=== PATIENT | male | born 1970 | race Caucasian/White ===

== ENCOUNTER 2018-01-28 14:44 | Emergency (ER) | payer OTHER ==
[2018-01-28 14:58] VITALS: RESP 18
[2018-01-28] MEDS ORDERED: ONDANSETRON 4 MG/2 ML VIAL IVP STA (15:15)
[2018-01-28] MEDS ORDERED: SODIUM CHLORIDE 0.9% 1,000 ML IV STA (15:15)
[2018-01-28] MEDS ORDERED: RX INFO: IV CONTRAST WAS GIVEN 1 EACH MISC MISCELLANE PRN (15:15)
[2018-01-28] MEDS ORDERED: MORPHINE SULFATE 4 MG/ML SYRINGE IVP STA (15:16)
--- NOTE | 2018-01-28 15:17 | ED ---
General Adult HPI - General Chief complaint: Abdominal Pain Stated complaint: abdominal pain Time Seen by Provider: 01/28/18 14:54 Source: EMS, RN notes reviewed Mode of arrival: EMS Limitations: no limitations - History of Present Illness Initial comments: Patient 47-year-old male presented to the emergency room today with a chief complaint of right lower quadrant pain. Patient states that pain started yesterday around the middle of the abdomen and moved to the right lower quadrant. Patient does admit that pain is sharp. Patient does admit that he is currently at rehab has been there for 2 weeks at [facility]. Patient states she's never had pain like this in the past. He denies any complaints or associated symptoms. Patient denies any recent fever, chills, shortness of breath, chest pain, back pain, numbness or tingling, dysuria or hematuria, constipation or diarrhea, headaches or visual changes, or any other complaints. - Related Data Previous Rx's Medication Instructions Recorded Dicyclomine [Bentyl] 20 mg PO QID #20 tablet 01/28/18 Ondansetron Odt [Zofran ODT] 4 mg PO Q8HR PRN #20 tab 01/28/18 Allergies Allergy/AdvReac Type Severity Reaction Status Date / Time hydrochlorothiazide Allergy Itching Verified 01/28/18 14:57 ketorolac [From Toradol] Allergy Swelling Verified 01/28/18 14:57 lisinopril Allergy Itching Verified 01/28/18 14:57 Penicillins Allergy Unknown Verified 01/28/18 14:57 Childhood aspirin AdvReac Abdominal Verified 01/28/18 14:57 Pain NSAIDS (Non-Steroidal AdvReac Abdominal Verified 01/28/18 14:57 Anti-Inflamma Pain Review of Systems ROS Statement: Those systems with pertinent positive or pertinent negative responses have been documented in the HPI. ROS Other: All systems not noted in ROS Statement are negative. Past Medical History Past Medical History: COPD, Hyperlipidemia, Hypertension Additional Past Medical History / Comment(s): skin cancer History of Any Multi-Drug Resistant Organisms: None Reported Past Surgical History: Joint Replacement Additional Past Surgical History / Comment(s): bilateral hip surgery Past Psychological History: No Psychological Hx Reported Smoking Status: Former smoker Past Alcohol Use History: None Reported Past Drug Use History: Cocaine, Marijuana, Opiates General Exam - General Exam Comments Initial Comments: General: The patient is awake and alert, in no distress, and does not appear acutely ill. Eye: Pupils are equal, round and reactive to light, extra-ocular movements are intact. No nystagmus. There is normal conjunctiva bilaterally. No signs of icterus. Ears, nose, mouth and throat: There are moist mucous membranes and no oral lesions. Neck: The neck is supple, there is no tenderness or JVD. Cardiovascular: There is a regular rate and rhythm. No murmur, rub or gallop is appreciated. Respiratory: Lungs are clear to auscultation, respirations are non-labored, breath sounds are equal. No wheezes, stridor, rales, or rhonchi. Gastrointestinal: Abdomen is soft on palpation per patient does have tenderness right lower quadrant. No rebound tenderness. No guarding. Musculoskeletal: Normal ROM, no tenderness. Strength 5/5. Sensation intact. Pulses equal bilaterally 2+. Neurological: A&O x 3. CN II-XII intact, There are no obvious motor or sensory deficits. Coordination appears grossly intact. Speech is normal. Skin: Skin is warm and dry and no rashes or lesions are noted. Psychiatric: Cooperative, appropriate mood & affect, normal judgment. Limitations: no limitations Course Vital Signs 01/28/18 01/28/18 14:56 16:58 Temperature 99.5 F Pulse Rate 69 88 Respiratory 18 18 Rate Blood Pressure 197/125 137/86 O2 Sat by Pulse 97 99 Oximetry Medical Decision Making - Medical Decision Making Patient reexamined at this time shows no signs of distress. His CT of the abdomen pelvis has been reviewed and does show mild to moderate enteritis causing possible ileus. Patient does admit to bowel movement today. Patient states she's had diarrhea last 3 days along with nausea vomiting. Does have 15, 000 white count felt to be reactive at this time. Patient doing well vitals are stable. Will be discharged home with Melissa Obrien for his symptoms advised used Tylenol for pain. Is advised follow-up the family doctor next 2 days return here to the emergency room symptoms increase or worsen. Patient states understanding and is in agreement. Case was discussed with attending physician Dr. Khan. - Lab Data Result diagrams: 01/28/18 15:20 01/28/18 15:20 Lab Results 05/16/18 05/16/18 05/16/18 Range/Units 15:20 15:20 15:20 WBC 15.1 H (3.8-10.6) k/uL RBC 4.63 (4.30-5.90) m/uL Hgb 13.8 (13.0-17.5) gm/dL Hct 41.9 (39.0-53.0) % MCV 90.5 (80.0-100.0) fL MCH 29.8 (25.0-35.0) pg MCHC 32.9 (31.0-37.0) g/dL RDW 14.4 (11.5-15.5) % Plt Count 428 (150-450) k/uL Neutrophils % 61 % Lymphocytes % 25 % Monocytes % 10 % Eosinophils % 3 % Basophils % 0 % Neutrophils # 9.1 H (1.3-7.7) k/uL Lymphocytes # 3.7 (1.0-4.8) k/uL Monocytes # 1.5 H (0-1.0) k/uL Eosinophils # 0.5 (0-0.7) k/uL Basophils # 0.1 (0-0.2) k/uL Sodium 143 (137-145) mmol/L Potassium 4.2 (3.5-5.1) mmol/L Chloride 102 (98-107) mmol/L Carbon Dioxide 26 (22-30) mmol/L Anion Gap 15 mmol/L BUN 30 H (9-20) mg/dL Creatinine 0.91 (0.66-1.25) mg/dL Est GFR (CKD-EPI)AfAm >90 (>60 ml/min/1.73 sqM) Est GFR (CKD-EPI)NonAf >90 (>60 ml/min/1.73 sqM) Glucose 95 (74-99) mg/dL Plasma Lactic Acid Juan C 0.6 L (0.7-2.0) mmol/L Calcium 9.6 (8.4-10.2) mg/dL Total Bilirubin 0.9 (0.2-1.3) mg/dL AST 33 (17-59) U/L ALT 72 (21-72) U/L Alkaline Phosphatase 72 (38-126) U/L Total Protein 7.0 (6.3-8.2) g/dL Albumin 4.2 (3.5-5.0) g/dL Amylase 62 (30-110) U/L Lipase 83 (23-300) U/L Urine Color Urine Appearance (Clear) Urine pH (5.0-8.0) Ur Specific [place] (1.001-1.035) Urine Protein (Negative) Urine Glucose (UA) (Negative) Urine Ketones (Negative) Urine Blood (Negative) Urine Nitrite (Negative) Urine Bilirubin (Negative) Urine Urobilinogen (<2.0) mg/dL Ur Leukocyte Esterase (Negative) Urine RBC (0-5) /hpf Ur Squamous Epith Cells (0-4) /hpf Amorphous Sediment (None) /hpf 01/28/18 Range/Units 17:15 WBC (3.8-10.6) k/uL RBC (4.30-5.90) m/uL Hgb (13.0-17.5) gm/dL Hct (39.0-53.0) % MCV (80.0-100.0) fL MCH (25.0-35.0) pg MCHC (31.0-37.0) g/dL RDW (11.5-15.5) % Plt Count (150-450) k/uL Neutrophils % % Lymphocytes % % Monocytes % % Eosinophils % % Basophils % % Neutrophils # (1.3-7.7) k/uL Lymphocytes # (1.0-4.8) k/uL Monocytes # (0-1.0) k/uL Eosinophils # (0-0.7) k/uL Basophils # (0-0.2) k/uL Sodium (137-145) mmol/L Potassium (3.5-5.1) mmol/L Chloride (98-107) mmol/L Carbon Dioxide (22-30) mmol/L Anion Gap mmol/L BUN (9-20) mg/dL Creatinine (0.66-1.25) mg/dL Est GFR (CKD-EPI)AfAm (>60 ml/min/1.73 sqM) Est GFR (CKD-EPI)NonAf (>60 ml/min/1.73 sqM) Glucose (74-99) mg/dL Plasma Lactic Acid Juan C (0.7-2.0) mmol/L Calcium (8.4-10.2) mg/dL Total Bilirubin (0.2-1.3) mg/dL AST (17-59) U/L ALT (21-72) U/L Alkaline Phosphatase (38-126) U/L Total Protein (6.3-8.2) g/dL Albumin (3.5-5.0) g/dL Amylase (30-110) U/L Lipase (23-300) U/L Urine Color Yellow Urine Appearance Cloudy (Clear) Urine pH 8.0 (5.0-8.0) Ur Specific [place] >1.050 H (1.001-1.035) Urine Protein Trace H (Negative) Urine Glucose (UA) Negative (Negative) Urine Ketones Negative (Negative) Urine Blood Negative (Negative) Urine Nitrite Negative (Negative) Urine Bilirubin Negative (Negative) Urine Urobilinogen <2.0 (<2.0) mg/dL Ur Leukocyte Esterase Negative (Negative) Urine RBC 4 (0-5) /hpf Ur Squamous Epith Cells 1 (0-4) /hpf Amorphous Sediment Rare H (None) /hpf Disposition Clinical Impression: Nausea vomiting and diarrhea Disposition: HOME SELF-CARE Condition: Good Instructions: Gastroenteritis (ED) Additional Instructions: Please use medication as discussed. Please follow-up with family doctor in the next 2 days of symptoms have not improved. Please return to emergency room if the symptoms increase or worsen or for any other concerns. Prescriptions: Dicyclomine [Bentyl] 20 mg PO QID #20 tablet Ondansetron Odt [Zofran ODT] 4 mg PO Q8HR PRN #20 tab PRN Reason: Nausea Is patient prescribed a controlled substance at d/c from ED?: No Referrals: None,Stated [Primary Care Provider] - 1-2 days Time of Disposition: 17:50
[2018-01-28 15:53] LABS: ALT 72 U/L (21-72); AST 33 U/L (17-59); Albumin 4.2 g/dL (3.5-5.0); Alkaline Phosphatase 72 U/L (38-126); Amylase 62 U/L (30-110); Anion Gap 15 mmol/L; Basophils # (A) 0.1 k/uL (0-0.2); Basophils % (A) 0 %; Blood Urea Nitrogen 30 mg/dL (9-20); Calcium 9.6 mg/dL (8.4-10.2); Carbon Dioxide 26 mmol/L (22-30); Chloride 102 mmol/L (98-107); Eosinophils # (A) 0.5 k/uL (0-0.7); Eosinophils % (A) 3 %; Glucose 95 mg/dL (74-99); HCT 41.9 % (39.0-53.0); HGB 13.8 gm/dL (13.0-17.5); Lipase 83 U/L (23-300); Lymphocytes # (A) 3.7 k/uL (1.0-4.8); Lymphocytes % (A) 25 %; MCH 29.8 pg (25.0-35.0); MCHC 32.9 g/dL (31.0-37.0); MCV 90.5 fL (80.0-100.0); Mean Platelet Volume 7.2; Monocytes # (A) 1.5 k/uL (0-1.0); Monocytes % (A) 10 %; Neutrophils # (A) 9.1 k/uL (1.3-7.7); Neutrophils % (A) 61 %; Platelet Count 428 k/uL (150-450); Potassium 4.2 mmol/L (3.5-5.1); RBC 4.63 m/uL (4.30-5.90); RDW 14.4 % (11.5-15.5); Sodium 143 mmol/L (137-145); Total Bilirubin 0.9 mg/dL (0.2-1.3); WBC 15.1 k/uL (3.8-10.6)
--- NOTE | 2018-01-28 16:53 | CT ---
EXAMINATION TYPE: CT abdomen pelvis w con DATE OF EXAM: 01/28/2018 COMPARISON: NONE HISTORY: Abd pain and vomiting. CT DLP: 507 mGycm, Automated Exposure Control for Dose Reduction was Utilized. CONTRAST: CT scan of the abdomen and pelvis is performed without oral but with IV Contrast, patient injected w ith 100ml mL of Isovue M300. FINDINGS: LUNG BASES: No significant abnormality is appreciated. LIVER/GB: No significant abnormality is appreciated. PANCREAS: No significant abnormality is seen. SPLEEN: No significant abnormality is seen. ADRENALS: No significant abnormality is seen. KIDNEYS: There is 3.0 cm simple appearing cyst laterally upper pole level right kidney. There are sub centimeter low dense lesion medially upper pole level left kidney too small to further characterize s eries 5 image 27. There is symmetric cortical medullary uptake and excretion from both kidneys withou t evidence of hydronephrosis bilaterally. BOWEL: Evaluation bowel is suboptimal secondary to lack of enteric contrast. There is no suspicious s tomach or colonic dilatation identified. Duodenal sweep is not dilated. Small bowel probable jejunal loop in the left upper quadrant fluid-filled prominent, some abnormal dilatation of the 3.5 cm is see n axial image 32. Air-fluid level is present. Some adjacent nondilated bowel loops are felt present. There is perhaps areas of mild to moderate wall thickening near this level. Small bowel feces sign te rminal ileum consistent with delayed passage of ingested material 2 colonic level is present. Normal- appearing appendix from cecum is seen. PROSTATE/SEMINAL VESICLES: Suboptimal evaluation, visualized inferior portion axial image 84 is unrem arkable. LYMPH NODES: No greater than 1cm abdominal or pelvic lymph nodes are appreciated. OSSEOUS STRUCTURES: Metallic hardware from bilateral hip arthroplasties is present, this causes strea k artifact limiting evaluation of pelvic structures. There is mild to moderate multilevel spurring in the spine. There is moderate disc space narrowing with vacuum disc phenomenon L4-L5 level. OTHER: No significant additional abnormality is seen. IMPRESSION: Suspect a mild/moderate enteritis involving jejunal loops in the left upper to midabdomen causing focal ileus. Overall nonobstructive bowel gas pattern.
[2018-01-28 17:26] LABS: Amorphous Sediment,Urine Rare /hpf; Appearance,Urine Cloudy (Clear); Bilirubin,Urine Negative (Negative); Blood,Urine Negative (Negative); Color,Urine Yellow; Glucose,Urine (UA) Negative (Negative); Ketones,Urine Negative (Negative); Leukocyte Esterase,Urine Negative (Negative); Nitrite,Urine Negative (Negative); Protein,Urine Trace (Negative); RBC,Urine 4 /hpf (0-5); Squamous Epithelial Cell,Urine 1 /hpf (0-4); Urobilinogen,Urine <2.0 mg/dL (<2.0)
[2018-01-28 17:43] LABS: Specific Gravity,Urine >1.050 (1.001-1.035)
[2018-01-28] MEDS ORDERED: MORPHINE SULFATE 4 MG/ML SYRINGE IM STA (17:50)
[2018-01-28] MEDS ORDERED: DICYCLOMINE 10 MG/ML 2 ML AMP IM STA (17:51)
[2018-01-28] MEDS ORDERED: ONDANSETRON ODT 4 MG TAB PO STA (17:51)
[2018-01-28 18:23] VITALS: BP 134/87; PULSE 87; TEMP 98.7
== END 2018-01-28 18:22 | disposition home or self-care (01) ==
LOC: EC 14:44
DX: R11.2 Nausea with vomiting, unspecified (principal); R19.7 Diarrhea, unspecified; R10.31 Right lower quadrant pain; Z87.891 Personal history of nicotine dependence; Z85.828 Personal history of other malignant neoplasm of skin; Z96.643 Presence of artificial hip joint, bilateral; Z88.0 Allergy status to penicillin; Z88.6 Allergy status to analgesic agent; Z88.8 Allergy status to other drugs, medicaments and biological substances
CPT/HCPCS: 99285; 96374; 96375; 96372 ×2; 36415; 80053; 82150; 83605; 83690; 85025; 81001; 74177; J2270; J0500; J2405; Q9967

== ENCOUNTER 2018-02-02 13:34 | Observation (INO) | payer OTHER ==
[2018-02-02] MEDS ORDERED: FAMOTIDINE 20 MG/2 ML VIAL IV STA (13:54)
[2018-02-02] MEDS ORDERED: methylPREDNISolone SOD SUCCI 125 MG/2 ML VIAL IV STA (13:54)
[2018-02-02] MEDS ORDERED: diphenhydrAMINE 50 MG/ML 1 ML VIAL IVP STA ×2 (13:55→16:59)
--- NOTE | 2018-02-02 14:09 | ED ---
General Adult HPI <Christian Ross - Last Filed: 02/02/18 18:39> - General Source: patient, EMS, RN notes reviewed Mode of arrival: EMS Limitations: no limitations <Myron Bullard - Last Filed: 02/02/18 18:54> - General Chief complaint: Skin/Abscess/Foreign Body Stated complaint: poss allergic reaction Time Seen by Provider: 02/02/18 13:37 - History of Present Illness Initial comments: 47-year-old male presents to the emergency department for a chief complaint of rash 2 days. Patient states he had the rash about 2 weeks ago when he first started staying at [facility]. He was seen here in the emergency department and given Benadryl, steroids, and Pepcid. Patient states that the rash improved over the past week but came back last night. Patient states that he was given Benadryl last night and this morning about 3 hours ago. Patient states it helped somewhat. Patient is out of the Pepcid represcribed. Patient has also finished the steroid pack. Patient states the Medrol Dosepak irritates his stomach but prednisone does not. Patient requests to have prednisone if we prescribe him a steroid. Patient states his clothing is now being washed in hypoallergenic soaps. Patient states he feels like he has a "lump in his throat" but denies any difficulty breathing or swallowing. Denies any feelings of swelling in the throat or the lips or tongue. Patient is also complaining of left sided chest pain on re-evaluation since this morning. Patient states it is worse while taking a deep breath. Patient has no other complaints at this time including shortness of breath, abdominal pain, nausea or vomiting, headache, or visual changes. (Myron Bullard) - Related Data Previous Rx's Medication Instructions Recorded Dicyclomine [Bentyl] 20 mg PO QID #20 tablet 01/28/18 Ondansetron Odt [Zofran ODT] 4 mg PO Q8HR PRN #20 tab 01/28/18 Allergies Allergy/AdvReac Type Severity Reaction Status Date / Time hydrochlorothiazide Allergy Itching Verified 02/02/18 13:42 ketorolac [From Toradol] Allergy Swelling Verified 02/02/18 13:42 lisinopril Allergy Itching Verified 02/02/18 13:42 Penicillins Allergy Unknown Verified 02/02/18 13:42 Childhood aspirin AdvReac Abdominal Verified 02/02/18 13:42 Pain NSAIDS (Non-Steroidal AdvReac Abdominal Verified 02/02/18 13:42 Anti-Inflamma Pain Review of Systems ROS Other: All systems not noted in ROS Statement are negative. <Christian Ross - Last Filed: 02/02/18 18:39> ROS Other: All systems not noted in ROS Statement are negative. <Myron Bullard - Last Filed: 02/02/18 18:54> ROS Statement: Those systems with pertinent positive or pertinent negative responses have been documented in the HPI. Past Medical History Past Medical History: COPD, Hyperlipidemia, Hypertension Additional Past Medical History / Comment(s): skin cancer History of Any Multi-Drug Resistant Organisms: None Reported Past Surgical History: Joint Replacement Additional Past Surgical History / Comment(s): bilateral hip surgery Past Psychological History: No Psychological Hx Reported Smoking Status: Former smoker Past Alcohol Use History: None Reported Past Drug Use History: Cocaine, Marijuana, Opiates <Myron Bullard - Last Filed: 02/02/18 18:54> General Exam Limitations: no limitations General appearance: alert, in no apparent distress ENT exam: Present: normal exam, normal oropharynx (Oropharynx is patent. Uvula is midline.) Neck exam: Present: normal inspection, full ROM. Absent: tenderness, meningismus, lymphadenopathy Respiratory exam: Present: normal lung sounds bilaterally. Absent: respiratory distress, wheezes, rales, rhonchi, stridor Cardiovascular Exam: Present: regular rate, normal rhythm, normal heart sounds. Absent: systolic murmur, diastolic murmur, rubs, gallop, clicks GI/Abdominal exam: Present: soft, normal bowel sounds. Absent: distended, tenderness, guarding, rebound, rigid Skin exam: Present: warm, dry, intact, rash (Patient has an erythematous pruritic plaque leg lesions on the abdomen, and upper and lower extremities. Negative Nikolsky sign. No lesions on the palms or soles. No lesions on mucous membranes.) <Myron Bullard - Last Filed: 02/02/18 18:54> Course <Christian Ross - Last Filed: 02/02/18 18:39> <Myron Bullard - Last Filed: 02/02/18 18:54> Vital Signs 02/02/18 02/02/18 02/02/18 13:39 16:10 17:13 Temperature 98.2 F Pulse Rate 116 H 62 89 Respiratory 18 18 Rate Blood Pressure 137/73 162/92 128/74 O2 Sat by Pulse 100 99 Oximetry - Reevaluation(s) Reevaluation #1: 02/02/18 18:39 I did personally do a [id number] evaluation the patient did discuss the findings with him. Patient symptoms are consistent with unstable angina he will be admitted I did discuss the case with Dr. Paz. CAT scan of the chest was negative for evidence of PE or acute processes. (Christian Ross) EKG Findings - EKG Comments: EKG Findings:: Sinus rhythm, ventricular rate 91, MO interval 134, QRS duration 82, <Myron Bullard - Last Filed: 02/02/18 18:54> Medical Decision Making - Lab Data Result diagrams: 02/02/18 16:47 02/02/18 16:47 <Christian Ross - Last Filed: 02/02/18 18:39> - Lab Data Result diagrams: 02/02/18 16:47 02/02/18 16:47 <Myron Bullard P - Last Filed: 02/02/18 18:54> - Medical Decision Making 47-year-old male presents to the emergency department for a chief complaint of rash 2 days. Patient states he he had a similar rash about 2 weeks ago when he began staying at [facility] which resolved with steroids, Benadryl, Pepcid. Patient states the Medrol Dosepak hurt his stomach and would like prednisone instead as that does not hurt his stomach. Patient states he has been pruritic since last night. Patient was last given Benadryl about 3 hours ago. Patient states he has a "lump in his throat" but denies difficulty swallowing or breathing. Denies any sensations of swelling in the lips tongue or throat. Vitals are within normal limits. On exam patient has erythematous, pruritic, plaque like lesions on the abdomen and extremities. The lesions resemble urticaria. Oropharynx is patent. Lungs are clear to auscultation bilaterally. Patient requests medications IV rather than IM as he states he tolerates IVs much better. IV was attempted twice. As patient is a past heroin user IV was not able to be started. He was given Prednisone and Pepcid in the emergency department. Patient refused Benadryl. Patient also began to complain of pleuritic chest pain. Chest x-ray shows no acute process. EKG normal sinus rhythm. On reexamination patient is now complaining of substernal chest pain radiating down the left arm. Jugular IV started by [employer]. Cardiac panel within normal limits as well as CBC and CMP. Elevated troponin. Negative CT angiogram of the chest. Patient will be admitted for unstable angina to Obs. (Myron Bullard) - Lab Data Lab Results 02/02/18 02/02/18 02/02/18 Range/Units 16:47 16:47 16:47 WBC 11.4 H (3.8-10.6) k/uL RBC 4.44 (4.30-5.90) m/uL Hgb 13.6 (13.0-17.5) gm/dL Hct 41.5 (39.0-53.0) % MCV 93.5 (80.0-100.0) fL MCH 30.5 (25.0-35.0) pg MCHC 32.7 (31.0-37.0) g/dL RDW 14.1 (11.5-15.5) % Plt Count 355 (150-450) k/uL Neutrophils % 88 % Lymphocytes % 8 % Monocytes % 2 % Eosinophils % 1 % Basophils % 0 % Neutrophils # 10.1 H (1.3-7.7) k/uL Lymphocytes # 0.9 L (1.0-4.8) k/uL Monocytes # 0.2 (0-1.0) k/uL Eosinophils # 0.1 (0-0.7) k/uL Basophils # 0.0 (0-0.2) k/uL PT 10.6 (9.0-12.0) sec INR 1.1 (<1.2) APTT 22.2 (22.0-30.0) sec D-Dimer 6.64 H (<0.60) mg/L FEU Sodium 142 (137-145) mmol/L Potassium 4.5 (3.5-5.1) mmol/L Chloride 109 H (98-107) mmol/L Carbon Dioxide 19 L (22-30) mmol/L Anion Gap 14 mmol/L BUN 17 (9-20) mg/dL Creatinine 0.80 (0.66-1.25) mg/dL Est GFR (CKD-EPI)AfAm >90 (>60 ml/min/1.73 sqM) Est GFR (CKD-EPI)NonAf >90 (>60 ml/min/1.73 sqM) Glucose 116 H (74-99) mg/dL Calcium 9.6 (8.4-10.2) mg/dL Magnesium 2.1 (1.6-2.3) mg/dL Total Bilirubin 0.8 (0.2-1.3) mg/dL AST 30 (17-59) U/L ALT 70 (21-72) U/L Alkaline Phosphatase 61 (38-126) U/L Total Creatine Kinase (55-170) U/L CK-MB (CK-2) (0.0-2.4) ng/mL CK-MB (CK-2) Rel Index Troponin I (0.000-0.034) ng/mL Total Protein 6.7 (6.3-8.2) g/dL Albumin 4.0 (3.5-5.0) g/dL 02/02/18 Range/Units 16:47 WBC (3.8-10.6) k/uL RBC (4.30-5.90) m/uL Hgb (13.0-17.5) gm/dL Hct (39.0-53.0) % MCV (80.0-100.0) fL MCH (25.0-35.0) pg MCHC (31.0-37.0) g/dL RDW (11.5-15.5) % Plt Count (150-450) k/uL Neutrophils % % Lymphocytes % % Monocytes % % Eosinophils % % Basophils % % Neutrophils # (1.3-7.7) k/uL Lymphocytes # (1.0-4.8) k/uL Monocytes # (0-1.0) k/uL Eosinophils # (0-0.7) k/uL Basophils # (0-0.2) k/uL PT (9.0-12.0) sec INR (<1.2) APTT (22.0-30.0) sec D-Dimer (<0.60) mg/L FEU Sodium (137-145) mmol/L Potassium (3.5-5.1) mmol/L Chloride (98-107) mmol/L Carbon Dioxide (22-30) mmol/L Anion Gap mmol/L BUN (9-20) mg/dL Creatinine (0.66-1.25) mg/dL Est GFR (CKD-EPI)AfAm (>60 ml/min/1.73 sqM) Est GFR (CKD-EPI)NonAf (>60 ml/min/1.73 sqM) Glucose (74-99) mg/dL Calcium (8.4-10.2) mg/dL Magnesium (1.6-2.3) mg/dL Total Bilirubin (0.2-1.3) mg/dL AST (17-59) U/L ALT (21-72) U/L Alkaline Phosphatase (38-126) U/L Total Creatine Kinase 45 L (55-170) U/L CK-MB (CK-2) 0.6 (0.0-2.4) ng/mL CK-MB (CK-2) Rel Index 1.3 Troponin I <0.012 (0.000-0.034) ng/mL Total Protein (6.3-8.2) g/dL Albumin (3.5-5.0) g/dL Disposition <Christian Ross - Last Filed: 02/02/18 18:39> Time of Disposition: 18:31 <Myron Bullard - Last Filed: 02/02/18 18:54> Clinical Impression: Chest pain Disposition: ADMITTED IP TO THIS HOSP Condition: Good Referrals: None,Stated [Primary Care Provider] - 1-2 days
[2018-02-02] MEDS ORDERED: predniSONE 50 MG TAB PO STA (14:40)
[2018-02-02] MEDS ORDERED: FAMOTIDINE 20 MG TAB PO STA (14:41)
[2018-02-02] MEDS ORDERED: diphenhydrAMINE 50 MG CAP PO STA (14:41)
--- NOTE | 2018-02-02 15:45 | XR ---
EXAMINATION TYPE: XR chest 2V DATE OF EXAM: 02/02/2018 COMPARISON: NONE HISTORY: Chest pain radiating down left arm TECHNIQUE: Frontal and lateral views of the chest are obtained. FINDINGS: There is no focal air space opacity, pleural effusion, or pneumothorax seen. The cardiac silhouette size is within normal limits. The osseous structures are intact. IMPRESSION: No acute cardiopulmonary process.
[2018-02-02] MEDS ORDERED: MAG HYDROX/AL HYDROX/SIMETH 30 ML, HYOSCYAMINE ELIXIR 10 ML, CIMETIDINE HCL 300 MG, LID... PO STA ×4 (15:51)
[2018-02-02] MEDS ORDERED: SODIUM CHLORIDE 0.9% 1,000 ML IV STA (16:08)
[2018-02-02] MEDS ORDERED: NITROGLYCERIN SL TABS 0.4 MG TAB SUBLINGUAL STA (16:08)
[2018-02-02] MEDS ORDERED: ASPIRIN 325 MG TAB PO STA (16:12)
[2018-02-02 16:56] LABS: Basophils % (A) 0 %; Eosinophils # (A) 0.1 k/uL (0-0.7); Eosinophils % (A) 1 %; HCT 41.5 % (39.0-53.0); HGB 13.6 gm/dL (13.0-17.5); Lymphocytes # (A) 0.9 k/uL (1.0-4.8); Lymphocytes % (A) 8 %; MCH 30.5 pg (25.0-35.0); MCHC 32.7 g/dL (31.0-37.0); MCV 93.5 fL (80.0-100.0); Mean Platelet Volume 7.6; Monocytes # (A) 0.2 k/uL (0-1.0); Monocytes % (A) 2 %; Neutrophils # (A) 10.1 k/uL (1.3-7.7); Neutrophils % (A) 88 %; Platelet Count 355 k/uL (150-450); RBC 4.44 m/uL (4.30-5.90); RDW 14.1 % (11.5-15.5); WBC 11.4 k/uL (3.8-10.6)
[2018-02-02 17:08] LABS: ALT 70 U/L (21-72); AST 30 U/L (17-59); Alkaline Phosphatase 61 U/L (38-126); Anion Gap 14 mmol/L; Blood Urea Nitrogen 17 mg/dL (9-20); Calcium 9.6 mg/dL (8.4-10.2); Carbon Dioxide 19 mmol/L (22-30); Chloride 109 mmol/L (98-107); Glucose 116 mg/dL (74-99); Magnesium 2.1 mg/dL (1.6-2.3); Potassium 4.5 mmol/L (3.5-5.1); Sodium 142 mmol/L (137-145); Total Bilirubin 0.8 mg/dL (0.2-1.3); Total Protein 6.7 g/dL (6.3-8.2)
[2018-02-02 17:20] LABS: Creatine Kinase 45 U/L (55-170)
[2018-02-02 17:21] LABS: INR 1.1 (<1.2); Partial Thromboplastin Time 22.2 sec (22.0-30.0); Prothrombin Time 10.6 sec (9.0-12.0)
[2018-02-02 17:25] LABS: D-Dimer 6.64 mg/L FEU (<0.60)
[2018-02-02] MEDS ORDERED: RX INFO: IV CONTRAST WAS GIVEN 1 EACH MISC MISCELLANE PRN (17:26)
[2018-02-02 17:33] LABS: Creatine Kinase MB 0.6 ng/mL (0.0-2.4); Troponin I <0.012 ng/mL (0.000-0.034)
--- NOTE | 2018-02-02 18:21 | CT ---
EXAMINATION TYPE: CT angio chest DATE OF EXAM: 02/02/2018 6:07 PM COMPARISON: NONE HISTORY: 3 weeks post op hip repair. Chest pain and shortness of breath CT DLP: 484.9 mGycm Automated exposure control for dose reduction was used. CONTRAST: CTA scan of the thorax is performed with IV Contrast, patient injected with 100 mL of Isovue 370, pul monary embolism protocol. There are 3-D post processed images.. FINDINGS: The lungs are clear of infiltrate. There is no evidence of a pulmonary mass. There is no pleural effu cheryle. Heart size is normal. There is no pericardial effusion. There is no mediastinal adenopathy. There are no hilar masses. The bony thorax is intact. There is normal contrast opacification of the pulmonary arteries. I see no filling defects. There is suboptimal contrast density however. There is small hiatal hernia. IMPRESSION: NEGATIVE CT ANGIOGRAM OF THE CHEST. NO EVIDENCE OF PULMONARY EMBOLISM. NO EVIDENCE OF AORTIC ANEURYSM OR DISSECTION.
[2018-02-02] MEDS ORDERED: NITROGLYCERIN SL TABS 0.4 MG TAB SUBLINGUAL PRN (18:31)
[2018-02-02] MEDS ORDERED: HEPARIN SODIUM,PORCINE 5,000 UNIT/ML 1 ML VIAL IV ONE (18:31)
[2018-02-02] MEDS ORDERED: HEPARIN SODIUM,PORCINE/D5W PMX 25,000 UNIT in DEXTROSE/WATER 1 500ML.BAG IV SCH (18:45)
[2018-02-02] MEDS ORDERED: KETOROLAC 30 MG/ML 1 ML VIAL IVP PRN (20:38)
[2018-02-02] MEDS ORDERED: ACETAMINOPHEN TAB 500 MG TAB PO PRN (20:45)
[2018-02-02 21:20] VITALS: BMI 26.6
[2018-02-02] MEDS: SODIUM CHLORIDE 0.9% 1,000 ML IV SCH (21:51)
[2018-02-02] MEDS ORDERED: ONDANSETRON 4 MG/2 ML VIAL IVP PRN (22:15)
[2018-02-02] MEDS: MAG HYDROX/AL HYDROX/SIMETH 30 ML CUP PO PRN (22:19)
[2018-02-02] MEDS: diphenhydrAMINE 50 MG/ML 1 ML VIAL IVP PRN (22:19)
[2018-02-02] MEDS: HYDROcodone/APAP 5-325MG 1 EACH TAB PO PRN (22:19)
[2018-02-02 23:28] LABS: Creatine Kinase 42 U/L (55-170)
[2018-02-02 23:39] LABS: Creatine Kinase MB 0.5 ng/mL (0.0-2.4); Troponin I <0.012 ng/mL (0.000-0.034)
[2018-02-02] MEDS: NITROGLYCERIN OINT 1 INCH/GM PACKET TOPICAL SCH (23:42)
[2018-02-02] MEDS ORDERED: cloNIDine HCL 0.1 MG TAB PO PRN (23:51)
[2018-02-03] MEDS: METOPROLOL TARTRATE 12.5 MG TAB PO SCH ×2 (00:42→09:18)
[2018-02-03] MEDS: MAG HYDROX/AL HYDROX/SIMETH 30 ML CUP PO PRN ×2 (02:00→05:40)
[2018-02-03 02:50] LABS: ALT 56 U/L (21-72); AST 21 U/L (17-59); Albumin 3.6 g/dL (3.5-5.0); Alkaline Phosphatase 53 U/L (38-126); Anion Gap 11 mmol/L; Blood Urea Nitrogen 16 mg/dL (9-20); Calcium 9.2 mg/dL (8.4-10.2); Carbon Dioxide 22 mmol/L (22-30); Chloride 107 mmol/L (98-107); Glucose 118 mg/dL (74-99); Potassium 4.1 mmol/L (3.5-5.1); Sodium 140 mmol/L (137-145); Total Bilirubin 0.8 mg/dL (0.2-1.3)
[2018-02-03] MEDS: HYDROcodone/APAP 5-325MG 1 EACH TAB PO PRN ×2 (03:42→09:50)
[2018-02-03] MEDS: diphenhydrAMINE 50 MG/ML 1 ML VIAL IVP PRN ×2 (03:42→09:51)
[2018-02-03] MEDS: SODIUM CHLORIDE 0.9% 1,000 ML IV SCH (05:13)
[2018-02-03] MEDS: NITROGLYCERIN OINT 1 INCH/GM PACKET TOPICAL SCH ×2 (05:14→12:13)
[2018-02-03 06:21] LABS: Cholesterol 158 mg/dL (<200); HDL Cholesterol 38 mg/dL (40-60); LDL Cholesterol,Calculated 103 mg/dL (0-99); Triglycerides 84 mg/dL (<150)
[2018-02-03 06:22] LABS: Basophils % (A) 0 %; Eosinophils # (A) 0.1 k/uL (0-0.7); Eosinophils % (A) 1 %; HCT 37.6 % (39.0-53.0); HGB 12.4 gm/dL (13.0-17.5); Lymphocytes # (A) 3.1 k/uL (1.0-4.8); Lymphocytes % (A) 24 %; MCH 30.4 pg (25.0-35.0); MCV 91.9 fL (80.0-100.0); Mean Platelet Volume 8.1; Monocytes # (A) 0.9 k/uL (0-1.0); Monocytes % (A) 7 %; Neutrophils # (A) 8.8 k/uL (1.3-7.7); Neutrophils % (A) 67 %; Platelet Count 315 k/uL (150-450); RBC 4.09 m/uL (4.30-5.90); WBC 13.1 k/uL (3.8-10.6)
[2018-02-03 06:30] LABS: Creatine Kinase 40 U/L (55-170)
[2018-02-03 06:44] LABS: Creatine Kinase MB 0.5 ng/mL (0.0-2.4); Troponin I <0.012 ng/mL (0.000-0.034)
--- NOTE | 2018-02-03 07:07 | HP ---
HISTORY AND PHYSICAL DATE OF SERVICE: 02/02/2018 CHIEF COMPLAINT: Chest pain. HISTORY OF PRESENT ILLNESS: This 47-year-old gentleman with a past medical history of COPD, hypertension, hyperlipidemia, not being followed by any primary physician in the outpatient setting apparently [facility] polysubstance [facility] including heroin and other medications. The patient had chest pain which was felt in the left lower part, sharp in character, which moved to the center part of the chest and the patient came to [facility] and admitted for further evaluation and treatment. The patient also complaining of a rash, which is actually red spots over the chest and the back. The patient is also feeling a lump like feeling in the throat also. There is no history of fever, rigors. No history of headache, loss of consciousness or seizures. After admission the patient had extensive evaluation including EKG, chest x-ray and as well as a chest CTA which did not show any abnormality. patient admitted for further evaluation and treatment. The D-dimer was elevated at 6.64. There is no history of any fever, rigors. No history of headache, loss of consciousness or seizures. PAST MEDICAL HISTORY: History of COPD, hypertension, hyperlipidemia, history of joint replacement. MEDICATIONS: Medications prior to admission include albuterol 1 to 2 p.r.n. ALLERGIES: HYDROCHLOROTHIAZIDE, TORADOL, LISINOPRIL, PENICILLIN, ASPIRIN, NSAIDS. FAMILY HISTORY: History of cancer, breast, liver, and lung. SOCIAL HISTORY: Previous history of smoking. No history of current smoking or alcohol intake. REVIEW OF SYSTEMS: ENT: No diminished hearing or diminished vision. CARDIOVASCULAR SYSTEM: As mentioned earlier. RESPIRATORY SYSTEM: As mentioned earlier. GI: No nausea, vomiting. : No dysuria. NERVOUS SYSTEM: No numbness or weakness. ALLERGY/IMMUNOLOGY: As mentioned earlier. HEMATOLOGY/ONCOLOGY: No history of anemia. ENDOCRINE: No history of diabetes or hypothyroidism. CONSTITUTIONAL: As mentioned earlier. DERMATOLOGY: Negative. RHEUMATOLOGY: Negative. PSYCHIATRY: As mentioned earlier. PHYSICAL EXAMINATION: The patient is alert and oriented x3. Pulse is 86, blood pressure 154/97, respirations 16, temperature 97.5, pulse ox 98% on room air. HEENT: Conjunctivae normal. Oral mucosa moist. Neck is no jugular venous distention. No carotid bruit. No lymph node enlargement. CARDIOVASCULAR: S1, S2 muffled. No S3, no S4. RESPIRATORY: Breath sounds diminished at the bases. A few rhonchi, no crackles. ABDOMEN: Soft, nontender. No mass palpable. LEGS: No edema, no swelling. NERVOUS SYSTEM: Higher functions as mentioned earlier. Moves all 4 limbs. No focal motor or sensory deficits. LYMPHATICS: No lymphadenopathy of the neck, axillae or groin. LABS: The lab investigations are at this time WBC 11.4. D-dimer is 6.64. ASSESSMENT: 1. Chest pain, rule out unstable angina. 2. Elevated D-dimer with no evidence of pulmonary embolism. 3. Increased WBC. 4. History of polysubstance abuse. 5. Chronic obstructive pulmonary disease. 6. Hypertension. 7. Hyperlipidemia. 8. History of degenerative joint disease. 9. History of cocaine, heroin, marijuana and opiates. RECOMMENDATIONS AND DISCUSSION: In this 47-year-old gentleman admitted after multiple medical issues at this time I recommend to continue symptomatic treatment, rule out myocardial infarction, unstable angina protocol. Cardiology consultation, possible stress test. The possibility of withdrawal syndrome also will be considered and we will initiate beta blockers. See orders for further details. Further recommendations to follow. Also recommend the patient to closely follow up with the primary physician after discharge also. The patient understands and agrees. MMODL / IJN: [id number] / ROSLYN
--- NOTE | 2018-02-03 07:41 | P.CRDCN ---
History of Present Illness Consult date: 02/03/18 Chief complaint: Chest pain History of present illness: This is a 47-year-old gentleman with a past medical history significant for hypertension and dyslipidemia and history of polysubstance use was currently at the rehab facility was brought to the emergency room because of rash. The patient was in his usual state of health until yesterday when he developed rash all over his body. Beside that he developed chest discomfort. He described the discomfort as a dull kind of discomfort in the mid of the chest without any radiation to the arm or neck or shoulders and without any associated symptoms of shortness of breath, dizziness or tenderness, or syncope. The patient stated that he had similar episode a few weeks ago where he presented to the emergency room at [facility] and he was discharged home same day. 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 The EKG showed sinus rhythm without any significant ST or T-wave abnormalities. 3 sets of cardiac enzymes were checked and came in to be unremarkable. The d- dimer was checked and came in to be abnormal but the CTA of the chest did not show any acute abnormalities consistent was PE. On physical examination, he does have abdominal tenderness. I want to get an ultrasound of the abdomen to rule out any intra-abdominal acute process. Meanwhile I will get an echocardiogram was Doppler. Past Medical History Past Medical History: COPD, Hyperlipidemia, Hypertension Additional Past Medical History / Comment(s): skin cancer History of Any Multi-Drug Resistant Organisms: None Reported Past Surgical History: Joint Replacement Additional Past Surgical History / Comment(s): bilateral hip surgery Past Anesthesia/Blood Transfusion Reactions: No Reported Reaction Smoking Status: Former smoker - Past Family History Mother Family Medical History: Cancer Additional Family Medical History / Comment(s): breast, liver, leg and lung CA Father Family Medical History: Cancer, Myocardial Infarction ([place]) Additional Family Medical History / Comment(s): Lung CA, [place] Medications and Allergies Home Medications Medication Instructions Recorded Confirmed Type Albuterol Inhaler [Ventolin Hfa 1 - 2 puff INHALATION RT-Q6H PRN 02/02/18 History Inhaler] Allergies Allergy/AdvReac Type Severity Reaction Status Date / Time hydrochlorothiazide Allergy Itching Verified 02/02/18 20:29 ketorolac [From Toradol] Allergy Swelling Verified 02/02/18 20:29 lisinopril Allergy Itching Verified 02/02/18 20:29 Penicillins Allergy Unknown Verified 02/02/18 20:29 Childhood aspirin AdvReac Abdominal Verified 02/02/18 20:29 Pain NSAIDS (Non-Steroidal AdvReac Abdominal Verified 02/02/18 20:29 Anti-Inflamma Pain Physical Exam Vitals: Vital Signs Temp Pulse Pulse Resp BP BP Pulse Ox 02/03/18 04:00 16 02/03/18 03:46 98.4 F 78 16 151/88 100 02/02/18 23:42 16 02/02/18 23:24 97.5 F L 86 16 154/97 98 02/02/18 21:55 16 02/02/18 21:06 98.0 F 86 16 169/99 100 02/02/18 20:26 93 18 163/98 98 02/02/18 17:13 89 128/74 02/02/18 16:10 62 18 162/92 99 02/02/18 13:39 98.2 F 116 H 18 137/73 100 Intake and Output 02/02/18 02/03/18 02/03/18 22:59 06:59 14:59 Intake Total 128.713 Balance 128.713 Intake: Intake, IV Titration 128.713 Amount Heparin Sodium,Porcine/ 128.713 D5w Pmx 25,000 unit In Dextrose/Water 1 500ml. bag @ 12 UNITS/KG/HR 17. 96 mls/hr IV .Q24H [facility] Rx #:[id number] Other: # Voids 1 Weight 74.8 kg - Constitutional General appearance: no acute distress - Respiratory Respiratory: bilateral: CTA - Cardiovascular Rhythm: regular Heart sounds: normal: S1, S2 Results 02/03/18 05:25 02/03/18 01:54 Cardiac Enzymes 02/02/18 02/02/18 02/02/18 Range/Units 16:47 16:47 22:20 AST 30 (17-59) U/L CK-MB (CK-2) 0.6 0.5 (0.0-2.4) ng/mL Troponin I <0.012 <0.012 (0.000-0.034) ng/mL 02/03/18 02/03/18 Range/Units 01:54 05:25 AST 21 (17-59) U/L CK-MB (CK-2) 0.5 (0.0-2.4) ng/mL Troponin I <0.012 (0.000-0.034) ng/mL Coagulation 02/02/18 02/03/18 Range/Units 16:47 01:54 PT 10.6 (9.0-12.0) sec APTT 22.2 24.7 (22.0-30.0) sec Lipids 02/03/18 Range/Units 05:25 Triglycerides 84 (<150) mg/dL Cholesterol 158 (<200) mg/dL HDL Cholesterol 38 L (40-60) mg/dL CBC 02/02/18 02/03/18 Range/Units 16:47 05:25 WBC 11.4 H 13.1 H (3.8-10.6) k/uL RBC 4.44 4.09 L (4.30-5.90) m/uL Hgb 13.6 12.4 L (13.0-17.5) gm/dL Hct 41.5 37.6 L (39.0-53.0) % Plt Count 355 315 (150-450) k/uL Comprehensive Metabolic Panel 02/02/18 02/03/18 Range/Units 16:47 01:54 Sodium 142 140 (137-145) mmol/L Potassium 4.5 4.1 (3.5-5.1) mmol/L Chloride 109 H 107 (98-107) mmol/L Carbon Dioxide 19 L 22 (22-30) mmol/L BUN 17 16 (9-20) mg/dL Creatinine 0.80 0.80 (0.66-1.25) mg/dL Glucose 116 H 118 H (74-99) mg/dL Calcium 9.6 9.2 (8.4-10.2) mg/dL AST 30 21 (17-59) U/L ALT 70 56 (21-72) U/L Alkaline Phosphatase 61 53 (38-126) U/L Total Protein 6.7 6.0 L (6.3-8.2) g/dL Albumin 4.0 3.6 (3.5-5.0) g/dL Current Medications Generic Name Dose Route Start Last Admin Trade Name Freq PRN Reason Stop Dose Admin Acetaminophen 1,000 mg 05/21/18 20:45 Tylenol Tab PO Q6HR PRN Fever and/ or Pain Hydrocodone Bitart/Acetaminophen 1 each 02/02/18 22:06 02/03/18 03:42 Eola 5-325 PO 1 each Q6HR PRN Administration Pain Al Hydroxide/Mg Hydroxide 30 ml 02/02/18 22:06 02/03/18 05:40 Maalox PO 30 ml Q4HR PRN Administration GI Upset Aspirin 325 mg 02/03/18 09:00 Aspirin PO DAILY [facility] Clonidine 0.1 mg 02/02/18 23:51 Catapres PO Q4HR PRN Hypertension Diphenhydramine HCl 25 mg 02/02/18 20:38 02/03/18 03:42 Benadryl IVP 25 mg Q6HR PRN Administration Allergy Symptoms Heparin Sodium/Dextrose 25,000 500 mls @ 17.96 mls/hr 02/02/18 18:45 03:33 unit/ IV Solution IV 15 units/kg/hr .Q24H [facility] 22.45 mls/hr Protocol Titration 12 UNITS/KG/HR Sodium Chloride 1,000 mls @ 100 mls/hr 02/02/18 18:45 02/03/18 05:13 Saline 0.9% IV Not Given .Q10H [facility] Metoprolol Tartrate 12.5 mg 02/02/18 23:45 02/03/18 00:42 Lopressor PO 12.5 mg BID [facility]DAIR Administration Miscellaneous Information 1 each 02/02/18 17:26 02/02/18 17:51 Rx Info: Iv Contrast Was Given MISCELLANE 02/04/18 17:28 1 each DAILY PRN Administration Per Protocol Nitroglycerin 1 inch 02/03/18 00:00 02/03/18 05:14 Nitro-Bid Oint TOPICAL Not Given Q6HR [facility] Nitroglycerin 0.4 mg 02/02/18 18:31 Nitrostat SUBLINGUAL Q5M PRN Chest Pain Ondansetron HCl 4 mg 02/02/18 22:15 02/02/18 22:19 Zofran IVP 4 mg Q6HR PRN Administration Nausea And Vomiting Intake and Output 02/02/18 02/03/18 02/03/18 22:59 06:59 14:59 Intake Total 128.713 Balance 128.713 Intake: Intake, IV Titration 128.713 Amount Heparin Sodium,Porcine/ 128.713 D5w Pmx 25,000 unit In Dextrose/Water 1 500ml. bag @ 12 UNITS/KG/HR 17. 96 mls/hr IV .Q24H [facility] Rx #:[id number] Other: # Voids 1 Weight 74.8 kg 02/03/18 05:25 02/03/18 01:54 Assessment and Plan Assessment: Assessment #1 atypical chest discomfort #2 abdominal discomfort #3 history of polysubstance use #4 hypertension #5 dyslipidemia Plan #1 rule out into abdominal acute process #2 obtain an echocardiogram was Doppler #3 DC the heparin #4 the patient does need to have a stress test either as an inpatient or outpatient once intra-abdominal acute process ruled out. Thank you for allowing us participate in his care
[2018-02-03 07:53] VITALS: RESP 18; TEMP 98.3
[2018-02-03] MEDS ORDERED: ASPIRIN 325 MG TAB PO SCH (09:00)
--- NOTE | 2018-02-03 11:34 | ECHOF ---
Referral Reason: MEASUREMENTS -------- HEIGHT: 167.6 cm WEIGHT: 74.4 kg BP: 151/88 IVSd: 1.0 cm (0.6 - 1.1) LVIDd: 4.3 cm (3.9 - 5.3) LVPWd: 1.3 cm (0.6 - 1.1) IVSs: 1.8 cm LVIDs: 2.4 cm LVPWs: 1.9 cm LAESV Index (A-L): 26.06 ml/m Ao Diam: 3.6 cm (2.0 - 3.7) AV Cusp: 2.4 cm (1.5 - 2.6) LA Diam: 3.6 cm (2.7 - 3.8) MV EXCURSION: 19.089 mm (> 18.000) MV EF SLOPE: 64 mm/s (70 - 150) EPSS: 0.3 cm MV E Gianfarnco: 0.93 m/s MV DecT: 255 ms MV A Gianfranco: 1.10 m/s MV E/A Ratio: 0.85 RAP: 5.00 mmHg RVSP: 20.73 mmHg FINDINGS -------- Sinus rhythm. This was a technically good study. The left ventricular size is normal. Left ventricular wall thickness is normal. Overall left vent ricular systolic function is normal with, an EF between 55 - 60 %. The right ventricle is normal in size and function. The left atrium is normal in size. The right atrium is normal in size. Aortic valve is trileaflet and is mildly thickened. The mitral valve leaflets are mildly thickened. There is trace mitral regurgitation. Trace tricuspid regurgitation present. The right ventricular systolic pressure, as measured by Dopp ler, is 20.73mmHg. Pulmonic valve appears structurally normal. The aortic root size is normal. Normal inferior vena cava with normal inspiratory collapse consistent with estimated right atrial pre ssure of 5 mmHg. The pericardium is normal. CONCLUSIONS -------- 1. Sinus rhythm. 2. This was a technically good study. 3. The left ventricular size is normal. 4. Left ventricular wall thickness is normal. 5. Overall left ventricular systolic function is normal with, an EF between 55 - 60 %. 6. The right ventricle is normal in size and function. 7. The left atrium is normal in size. 8. The right atrium is normal in size. 9. Aortic valve is trileaflet and is mildly thickened. 10. The mitral valve leaflets are mildly thickened. 11. There is trace mitral regurgitation. 12. Trace tricuspid regurgitation present. 13. The right ventricular systolic pressure, as measured by Doppler, is 20.73mmHg. 14. Pulmonic valve appears structurally normal. 15. The aortic root size is normal. 16. Normal inferior vena cava with normal inspiratory collapse consistent with estimated right atrial pressure of 5 mmHg. 17. The pericardium is normal. DRILLING FIELD SPECIALIST: Kylah Martinez RDCS
[2018-02-03 11:42] VITALS: BP 164/96; PULSE 67
[2018-02-03] MEDS ORDERED: MAG HYDROX/AL HYDROX/SIMETH 30 ML, HYOSCYAMINE ELIXIR 10 ML, CIMETIDINE HCL 300 MG, LID... PO ONE ×4 (12:00)
[2018-02-03 12:25] LABS: Appearance,Urine Cloudy (Clear); Bilirubin,Urine Negative (Negative); Blood,Urine Negative (Negative); Color,Urine Light Yellow; Glucose,Urine (UA) Negative (Negative); Ketones,Urine Negative (Negative); Leukocyte Esterase,Urine Negative (Negative); Mucus,Urine Rare /hpf; Nitrite,Urine Negative (Negative); Protein,Urine Negative (Negative); Specific Gravity,Urine 1.009 (1.001-1.035); Urobilinogen,Urine <2.0 mg/dL (<2.0)
--- NOTE | 2018-02-04 05:45 | DS ---
DISCHARGE SUMMARY DATE OF SERVICE: 02/03/2018. FINAL DIAGNOSES: 1. Chest pain, myocardial infarction ruled out, possibly musculoskeletal chest pain. 2. Elevated D-dimer with no evidence of pulmonary embolism. 3. Increased WBC. 4. History of polysubstance abuse in rehab. 5. Chronic obstructive pulmonary disease. 6. Hypertension. 7. Hyperlipidemia. 8. Degenerative joint disease. DISCHARGE DISPOSITION: The patient will be discharged in stable condition with guarded prognosis. Cardiology cleared the patient for discharge. HISTORY OF PRESENT ILLNESS: This 47-year-old gentleman admitted with chest pain, myocardial infarction ruled out. Cardiology recommended outpatient followup. On exam, vitals are stable. CARDIOVASCULAR: S1 and S2 muffled. ABDOMEN: Soft. NERVOUS SYSTEM: No focal deficit. DISCHARGE ADVICE: 1. Diet is cardiac. 2. Activity limited until followup. 3. Follow up with primary physician. 4. Follow up with Cardiology as recommended. MEDICATIONS: 1. Albuterol p.r.n. 2. Lopressor 12.5 mg b.i.d. 3. Protonix 40 mg p.o. daily. MMODL / IJN: [id number] /
== END 2018-02-03 13:25 | disposition home or self-care (01) ==
LOC: EC 13:34 → 3OBS 18:40
PROVIDERS: ADMIT Internal Medicine; ATTEND Internal Medicine
DX: R07.89 Other chest pain (principal); R77.8 Other specified abnormalities of plasma proteins; D72.829 Elevated white blood cell count, unspecified; R79.89 Other specified abnormal findings of blood chemistry; J44.9 Chronic obstructive pulmonary disease, unspecified; M19.90 Unspecified osteoarthritis, unspecified site; I10 Essential (primary) hypertension; F11.10 Opioid abuse, uncomplicated; F14.10 Cocaine abuse, uncomplicated; F12.10 Cannabis abuse, uncomplicated; E78.5 Hyperlipidemia, unspecified; R21 Rash and other nonspecific skin eruption; J39.2 Other diseases of pharynx; L29.9 Pruritus, unspecified; Z79.899 Other long term (current) drug therapy; Z88.6 Allergy status to analgesic agent; Z88.5 Allergy status to narcotic agent; Z88.0 Allergy status to penicillin; Z88.8 Allergy status to other drugs, medicaments and biological substances; Z85.828 Personal history of other malignant neoplasm of skin; Z87.891 Personal history of nicotine dependence; Z96.60 Presence of unspecified orthopedic joint implant; Z80.3 Family history of malignant neoplasm of breast; Z80.0 Family history of malignant neoplasm of digestive organs; Z80.1 Family history of malignant neoplasm of trachea, bronchus and lung; Z82.49 Family history of ischemic heart disease and other diseases of the circulatory system; Z83.79 Family history of other diseases of the digestive system
CPT/HCPCS: 99285 ×2; 96365 ×2; 96375 ×3; 96376 ×4; 96361 ×3; 96366 ×2; 36415; 93005; 93306; 85379; 80061; 80053 ×2; 82550 ×2; 82553 ×2; 83735; 84484 ×2; 85025 ×2; 85610; 85730 ×2; 81001; 71046; 71275; G0378 ×2; J1200 ×2; J1644 ×2; J2405; J7512; Q9967